=== PATIENT | female | born 1990 | race Caucasian/White ===

== ENCOUNTER 2024-09-28 21:02 | Inpatient (IN) ==
[2024-09-28] MEDS ORDERED: ACETAMINOPHEN 500 MG TAB PO PRN (21:30)
[2024-09-28] MEDS ORDERED: CALCIUM CARBONATE 500 MG CHEWABLE TAB PO PRN (21:30)
[2024-09-28] MEDS ORDERED: LIDOCAINE 1% LOCAL 20 ML VIAL INFIL PRN (21:30)
--- NOTE | 2024-09-28 21:37 | History & Physical Report ---
Date of Service September 28, 2024 Assessment & Plan (1) Gestational diabetes: Plan: Mara is a 33-year-old G1, P0 currently at 39 weeks 2 days gestational age presents early labor. 1. Fetus: Category 1 tracing 2. Labor: Will augment as needed appears to be in early labor 3. GBS positive -will start penicillin per protocol 4. Vitals within normal limits. (2) Supervision of normal first : (3) Group B streptococcal infection during : History of Present Illness Primary Care Provider: MARTIR Parrish Mara is a 33-year-old G1, P0 currently at 39 weeks 2 days gestational age presents in early labor. Reporting regular painful contractions. Denying leakage of fluid or vaginal bleeding reporting good movement. plans: Bariatric surgery 2017 - Gastric Sleeve *Growth US Q 4wks- per MFM--done 08/07/24 Carrier of SMA *FOB Negative Abnormal contour to placenta still present @ 24wks *MFM consult (07/07/24 @ [facility] [place]) Placental polyp Follow up w/ MFM w/in 4-6 weeks--nl us 08/07/24 Gestational Diabetes Growth u/s's q 4 weeks Nausea Benefit w/ Unisom, not Zofran Reglan contraindicated d/t Fluoxetine Discussed supportive measures GBS Positive *treat in labor Allergies Allergy/AdvReac Type Severity Reaction Status Date / Time No Known Allergies Allergy Verified 09/28/24 21:15 Home Medications Medication Instructions Recorded Confirmed Type fluoxetine [Prozac] 80 mg PO DAILY 07/17/23 09/28/24 History vits,calcium 21-iron fum tab PO 02/06/24 09/25/24 History 14 mg iron-folic acid 400 mcg tablet ( Complete) Breast Pump #1 ea 07/31/24 09/25/24 Rx acetone (urine) test (Ketone Urine #50 ea 08/05/24 09/25/24 Rx Test strips) blood sugar diagnostic (AppSociallyTouch #150 ea 08/05/24 09/25/24 Rx Verio test strips) blood-glucose meter (OneTouch #1 ea 08/05/24 09/25/24 Rx Verio Reflect Meter) lancets 33 gauge (OneTouch Delica #150 ea 08/05/24 09/25/24 Rx Plus Lancet) Patient History Medical History Varicella vaccination Asthma Anxiety and depression Surgical History H/O bariatric surgery Gastric sleeve Family History Mother Cervical cancer Denies family history of Ovarian cancer Prostate cancer Breast cancer Colorectal cancer Uterine cancer Social History (Updated 02/20/24 @ 08:59 by Kya Phelps) Smoking Status: Never smoker Do You Dip or Chew Tobacco: No; Hx Alcohol Use: Yes marital status: marital status details: Hussein Steven (33) [phone] Current Living Situation: Spouse Current Living Situation Comment: lives with spouse, fish, dog, cat-spouse changing litter current occupational status: employed 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 Physical Exam Genitourinary: OB Exam Monitor Tracing: + external FHT monitor used, + external uterine monitor used, + category I and + normal FHT variability 3 cm per nurse exam Results & Data Vital Signs (Past 12 Hours) Vital Signs Pulse BP 09/28/24 21:14 82 122/80 Coding Level of Care Code None Diagnoses Diet controlled gestational diabetes mellitus (GDM) in third trimester O24.410 Gestational diabetes mellitus control: diet-controlled Trimester: third trimester Encounter for supervision of normal first in third trimester Z34.03 Trimester: third trimester Group B streptococcal infection during O98.819; B95.1 (1) Gestational diabetes Gestational diabetes mellitus control: diet-controlled Trimester: third trimester Qualified Code(s): O24.410 - Gestational diabetes mellitus in , diet controlled (2) Supervision of normal first Trimester: third trimester Qualified Code(s): Z34.03 - Encounter for supervision of normal first , third trimester
[2024-09-28] MEDS: LACTATED RINGER'S 1,000 ML IV PRN (22:02)
[2024-09-28] MEDS: PENICILLIN GK 6 MU in SODIUM CHLORIDE 0.9% 250 ML IV STA (22:02)
[2024-09-28 22:10] LABS: Hemoglobin 11.5 g/dl (12.0-16.0); Mean Corpuscular Hemoglobin 27.6 pg (25.0-34.0); Mean Corpuscular Hgb Conc 33.8 g/dL (32.0-36.0); Mean Corpuscular Volume 81.7 fL (80.0-100.0); Mean Platelet Volume 10.1 fL (9.4-12.4); Platelet Count 240 K/uL (130-400); RDW Coefficient of Variation 15.3 % (11.5-14.5); RDW Standard Deviation 44.3 fL (36.4-46.3); Red Blood Count 4.16 M/uL (4.20-5.40); White Blood Count 14.72 K/ul (4.8-10.8)
[2024-09-28] MEDS ORDERED: NALBUPHINE HCL INJ 10 MG/ML AMP IV PRN (22:15)
[2024-09-28] MEDS ORDERED: NALOXONE HCL 0.4 MG/1 ML VIAL/CARP IV PRN (22:15)
[2024-09-28] MEDS ORDERED: NALOXONE HCL 1 MG in SODIUM CHLORIDE 0.9% 1,000 ML IV PRN (22:15)
[2024-09-28] MEDS ORDERED: SODIUM CHLORIDE 0.9% PF INJ 10 ML VIAL EPI PRN (22:15)
[2024-09-28] MEDS ORDERED: BUPIVACAINE 0.25% PF 30 ML VIAL EPI PRN (22:15)
[2024-09-28] MEDS ORDERED: ePHEDrine sulfate 50 MG/ML AMP IV PRN (22:15)
[2024-09-28] MEDS ORDERED: LIDOCAINE 2% MPF LOCAL 5 ML VIAL EPI PRN (22:15)
[2024-09-28] MEDS ORDERED: fentaNYL citrate PF 100 MCG/2 ML VIAL EPI PRN (22:15)
[2024-09-28] MEDS ORDERED: ROPIVACAINE 0.5% PF 5 MG/ML 20 ML VIAL EPI PRN (22:15)
[2024-09-28] MEDS ORDERED: diphenhydrAMINE 50 MG/ML VIAL IV PRN (22:15)
--- NOTE | 2024-09-28 22:22 | Anesthesiology Consultation ---
Date of Service September 28, 2024 Assessment & Plan (1) Encounter for pre-operative examination: Chart Review Chart Review: Patient NOT seen in Pre Admission Testing and Acceptable Risk for Labor Epidural Consults Requested none History Height/Weight Height: 5 ft 8 in Weight: 124.284 kg Allergies Allergy/AdvReac Type Severity Reaction Status Date / Time No Known Allergies Allergy Verified 09/28/24 21:15 Medications Home Medications Medication Instructions Recorded Confirmed Last Taken fluoxetine [Prozac] 80 mg PO DAILY 07/17/23 09/28/24 09/27/24 09:00 vits,calcium 21-iron fum tab PO 02/06/24 09/25/24 09/27/24 09:00 14 mg iron-folic acid 400 mcg tablet ( Complete) Breast Pump #1 ea 07/31/24 09/25/24 Unknown acetone (urine) test (Ketone Urine #50 ea 08/05/24 09/25/24 Unknown Test strips) blood sugar diagnostic (OneTouch #150 ea 08/05/24 09/25/24 Unknown Verio test strips) blood-glucose meter (OneTouch #1 ea 08/05/24 09/25/24 Unknown Verio Reflect Meter) lancets 33 gauge (OneTouch Delica #150 ea 08/05/24 09/25/24 Unknown Plus Lancet) Active Medications Generic Name Dose Route Start Last Admin Trade Name Freq PRN Reason Stop Dose Admin Lactated Ringer's 1,000 mls @ 125 mls/hr 09/28/24 21:30 09/28/24 22:02 Lr IV 09/29/24 21:29 999 mls/hr .Q8H PRN Administration L&D Protocol Protocol Past Medical History Medical History (Updated 09/28/24 @ 22:21 by Barrington Mccollum MD) Encounter for pre-operative examination Varicella vaccination Asthma allergy and exercise induced Anxiety and depression Exercise / Class Metabolic Activity II 4-5 Yardwork/Stairs/Walk up hill Past Family History Family History Mother Cervical cancer Denies family history of Ovarian cancer Prostate cancer Breast cancer Colorectal cancer Uterine cancer Past Surgical History Surgical History H/O bariatric surgery Gastric sleeve Social History Smoking Status: Never smoker Do You Dip or Chew Tobacco: No Hx Alcohol Use: Yes Hx Substance Use: No substance use type: does not use Physical Exam Vital Signs Last Vital Signs Temp 36.4 C L 09/28/24 21:31 Pulse 89 09/28/24 22:41 Resp 18 09/28/24 21:31 BP 139/76 09/28/24 22:39 Pulse Ox 100 09/28/24 22:41 Testing Laboratory Results 09/28/24 21:42 09/28/24 21:26 POC Glucose 94
[2024-09-28] MEDS: LIDOCAINE 2%/EPINEPHRINE 1:200,000 20 ML PF ONE (22:45)
[2024-09-28] MEDS: BUPIVACAINE 0.25% PF 30 ML VIAL ONE (22:45)
[2024-09-28] MEDS: fentaNYL citrate PF 100 MCG/2 ML VIAL ONE (22:46)
[2024-09-28] MEDS: fentANYL 2 MCG/ML BUPIVacaine 0.125%-NSS 100ML BAG ONE (22:49)
[2024-09-28] MEDS: ePHEDrine sulfate 50 MG/ML AMP ONE (23:22)
[2024-09-28] MEDS: SODIUM CHLORIDE 0.9% PF INJ 10 ML VIAL ONE (23:23)
[2024-09-29] MEDS: PENICILLIN GK 3 MU in DEXTROSE 5% 100 ML IV PRN (01:57)
[2024-09-29] MEDS: ONDANSETRON INJ 2 MG/ML 2 ML VIAL IV PRN (04:58)
[2024-09-29] MEDS: fentANYL 2 MCG/ML BUPIVacaine 0.125%-NSS 100ML BAG EPI PRN (05:23)
[2024-09-29] MEDS: SODIUM CHLORIDE 0.9% PF INJ 10 ML VIAL EPI STA (10:08)
[2024-09-29] MEDS: BUPIVACAINE 0.25% PF 30 ML VIAL EPI STA (10:08)
[2024-09-29] MEDS: LIDOCAINE 2%/EPINEPHRINE 1:200,000 20 ML PF EPI STA (10:08)
[2024-09-29] MEDS: fentaNYL citrate PF 100 MCG/2 ML VIAL EPI STA (10:08)
[2024-09-29] MEDS: OXYTOCIN 30 UNITS/NSS 30 UNITS/500 ML BAG IV PRN (10:18)
[2024-09-29] MEDS ORDERED: cefOXitin 2,000 MG in DEXTROSE 5 % MINI-B 50 ML IV STA (10:20)
--- NOTE | 2024-09-29 10:37 | Delivery Summary ---
Vaginal Delivery Summary Date of Service September 29, 2024 Vaginal Delivery Summary and 2nd Degree LAC PREOPERATIVE DIAGNOSIS: 1. Single intrauterine at 39 3/7 wga 2. Labor 3. A1GDM 4. Placental polyp 5. GBS+ POSTOPERATIVE DIAGNOSIS: 1. Single intrauterine at 39 3/7 wga 2. Labor 3. A1GDM 4. Placental polyp 5. GBS+ 6. Manual extraction of placenta 7. Delivered PROCEDURE: 1. Normal spontaneous vaginal delivery. SURGEON: Gregoria Majano MD ANESTHESIA: Epidural. QUANTITATIVE BLOOD LOSS: 568 mL FLUIDS: Continuous LR. URINE OUTPUT: None. COMPLICATIONS: None. CONDITION: Stable. INDICATIONS: 33 yo G1 at 39 3/7 wga presented in labor. She received penicillin for GBS+ status. She underwent srom for meconium fluid and received an epidural for pain control. She progressed to complete and desired to push. FINDINGS: A viable female infant, weight pending with Apgars of 8 and 8 at 1 and 5 minutes respectively. SPECIMEN: Cord blood, placenta OPERATIVE REPORT: The patient progressed to 10 cm, 100% effaced and +2 station, pushed over intact perineum with anesthesia to deliver a viable female , weight and Apgars as above. Head of delivered in HUA position. No nuchal cord was present. Body and shoulders were delivered without difficulty. was delivered to maternal abdomen and nursing staff. Delayed cord clamping was performed for 60 seconds. Cord was clamped and cut. Cord blood was obtained. Placenta did not deliver spontaneously so manual extraction was performed. Additional sweep did not reveal residual placenta. IV oxytocin and fundal massage were given for excellent hemostasis. Vagina, cervix, perineum, and placenta were inspected. A second degree laceration was repaired using 3-0 vicryl, there was excellent hemostasis. Sponge and needle counts correct x2. No sponges were left behind. Mother and stable in immediate period. One dose of ancef was given due to manual extraction [facility] Vaginal Delivery Charge Vaginal Delivery Codes: 99519 global code for the antepartum, delivery, and post- Delivery Type Details: and 2nd Degree LAC
[2024-09-29] MEDS ORDERED: HYDROCORTISONE ACETATE 25 MG SUPP PR PRN (10:43)
[2024-09-29] MEDS ORDERED: OXYTOCIN 30 UNITS/NSS 30 UNITS/500 ML BAG IV PRN (10:43)
[2024-09-29] MEDS ORDERED: bisacodyL 10 MG SUPP PR PRN (10:43)
[2024-09-29] MEDS ORDERED: ACETAMINOPHEN 325 MG TAB PO PRN (10:43)
[2024-09-29] MEDS: ceFAZolin 3,000 MG in DEXTROSE 5% 50 ML IV STA (10:50)
[2024-09-29] MEDS: DIPHTHER/TETAN/PERTUS Vaccine (Tdap, Adol/Adult) 0.5mL IM ONE (11:00)
--- NOTE | 2024-09-29 11:47 | Anesthesia Procedure Note ---
Date of Service September 29, 2024 Anesthesia Post Epidural Note Vital Signs Vital Signs: Temp Pulse Resp BP Pulse Ox 99.0 F 65 20 144/77 H 95 09/29/24 08:30 09/29/24 11:39 09/29/24 11:24 09/29/24 11:39 09/29/24 10:21 Pain Intensity Abdomen: Pain Intensity: 1 Notes Mental Status: alert / awake / arousable and participated in evaluation Nausea / Vomiting: adequately controlled Pain: adequately controlled Airway Patency, RR, SpO2: stable & adequate BP & HR: stable & adequate Hydration State: stable & adequate Neuraxial Anesthesia: was administered and sensory block is resolving Anesthetic Complications: no major complications apparent and Pt Satisfied with anesthetic care Epidural: Removed without complications and With tip intact
[2024-09-29] MEDS: IBUPROFEN 600 MG TAB PO PRN (12:23)
[2024-09-29] MEDS: BENZOCAINE 20% SPRY 85 APPLN/85 GM CAN EXT PRN (12:24)
[2024-09-29] MEDS: SODIUM CHLORIDE 0.9% 500 ML IV ONE (16:28)
[2024-09-29] MEDS: DOCUSATE SODIUM 100 MG CAP PO SCH (21:20)
--- NOTE | 2024-09-30 06:07 | Obstetrical Progress Note ---
Date of Service <Jonny Tineo MD - Last Filed: 09/30/24 07:04> September 30, 2024 Assessment & Plan <Jonny Tineo MD - Last Filed: 09/30/24 07:04> (1) care and examination: PPD#1 s/p at 39 wga: Stable. Rh+, gbs+, ri, vitals wnl Continue routine care, ambulation, diet as tolerated, work on Plan for DC tomorrow <Kathy Saucedo MD - Last Filed: 09/30/24 07:06> (1) care and examination: Subjective <Jonny Tineo MD - Last Filed: 09/30/24 07:04> Patient is a 33yo who is PPD#1 following at 39 weeks. Abd pain/cramping minimal, well managed on analgesics, mostly burning around stitches Voiding w/o issue Tolerating meals Ambulating normally +passing gas, no BM yet Having appropriate lochia Planning to breastfeed. Constitutional: no fever, no chills or no sweats Respiratory: no dyspnea Cardiovascular: no chest pain, no palpitations or no calf pain Breast: no breast pain Gastrointestinal: no nausea or no vomiting Genitourinary (female): no dysuria Neurologic: no headache(s) no changes in vision, no headaches Physical Exam <Jonny Tineo MD - Last Filed: 09/30/24 07:04> General: Alert, oriented. No acute distress. Cardiac: Regular rate and rhythm, no murmurs, rubs, or gallops. Respiratory: Clear to auscultation bilaterally. No increased work of breathing. Symmetrical chest rise. No respiratory distress. Abdomen: Soft, nontender, nondistended. Bowel sounds present. Uterus: Uterine fundus firm, nontender, palpable 1 cm below the umbilicus. Lower extremities: No lower extremity edema or swelling. No deep calf pain. Results & Data <Jonny Tineo MD - Last Filed: 09/30/24 07:04> Vital Signs (Past 12 Hours) Vital Signs Temp Pulse Resp BP Pulse Ox O2 Del Method 09/30/24 03:50 36.6 C 76 18 129/83 98 Room Air 09/29/24 23:10 36.9 C 88 18 109/68 98 Room Air 09/29/24 19:50 36.6 C 88 18 121/79 98 Room Air Supervising Physician <Kathy Saucedo MD - Last Filed: 09/30/24 07:06> Co-Signing Physician Notes Resident Physician Supervision Note: I interviewed and examined the patient. Discussed with Dr. Tineo and agree with findings and plan as documented in the note. Any exceptions or clarifications are listed here: [ ] Documented By: Kathy Saucedo MD, FACOG Resident Activity Tracking <Jonny Tineo MD - Last Filed: 09/30/24 07:04> Resident Involvement: Resident Care Provided Care Provided: Adult Hospital Medicine
[2024-09-30] MEDS: FERROUS SULFATE 325 MG TAB PO SCH (07:56)
[2024-09-30] MEDS: PRENATAL VITAMIN 1 TAB PO SCH (07:56)
[2024-09-30] MEDS: bisacodyL 5 MG TABEC PO SCH (20:42)
[2024-10-01 00:11] VITALS: O2SAT 99
--- NOTE | 2024-10-01 07:11 | Obstetrical Progress Note ---
Date of Service <Jonny Tineo MD - Last Filed: 10/01/24 08:22> October 01, 2024 Assessment & Plan <Jonny Tineo MD - Last Filed: 10/01/24 08:22> (1) care and examination: PPD#2 s/p at 39 wga: Stable. Rh+, gbs+, ri, vitals wnl Continue routine care, ambulation, diet as tolerated, work on Plan for DC today <Hayley Mccain DO - Last Filed: 10/01/24 08:46> (1) care and examination: Subjective <Jonny Tineo MD - Last Filed: 10/01/24 08:22> Patient is a 33yo who is PPD#2 following at 39 weeks. Abd pain/cramping minimal, well managed on analgesics Was unsure if it's normal that she's not tired despite barely sleeping since admission Voiding w/o issue Tolerating meals Ambulating normally +passing gas, no BM yet Having appropriate lochia Planning to breastfeed. Constitutional: no fever, no chills or no sweats Respiratory: no dyspnea Cardiovascular: no chest pain, no palpitations or no calf pain Breast: no breast pain Gastrointestinal: no nausea or no vomiting Genitourinary (female): no dysuria Neurologic: no headache(s) Physical Exam <Jonny Tineo MD - Last Filed: 10/01/24 08:22> General: Alert, oriented. No acute distress. Cardiac: Regular rate and rhythm, no murmurs, rubs, or gallops. Respiratory: Clear to auscultation bilaterally. No increased work of breathing. Symmetrical chest rise. No respiratory distress. Abdomen: Soft, nontender, nondistended. Bowel sounds present. Uterus: Uterine fundus firm, nontender, palpable 2 cm below the umbilicus. Lower extremities: 1+ LE pitting edema. No deep calf pain. Results & Data <Jonny Tineo MD - Last Filed: 10/01/24 08:22> Vital Signs (Past 12 Hours) Vital Signs Temp Pulse Resp BP Pulse Ox O2 Del Method 09/30/24 23:45 36.7 C 69 16 115/76 99 Room Air 09/30/24 20:15 36.5 C 89 16 129/84 100 Room Air Supervising Physician <Hayley Mccain DO - Last Filed: 10/01/24 08:46> Co-Signing Physician Notes Resident Physician Supervision Note: I was present with Dr. Tineo during the history and exam. I discussed the case with the resident and agree with the findings and plan as documented in the note. Any exceptions or clarifications are listed here: PPD#2 doing well. DC instructions reviewed. PP followup 6 w Documented By: Hayley Mccain DO Resident Activity Tracking <Jonny Tineo MD - Last Filed: 10/01/24 08:22> Resident Involvement: Resident Care Provided Care Provided: Adult Hospital Medicine
[2024-10-01 08:39] VITALS: BP 115/78; PULSE 82; RESP 18; TEMP 98.2
== END 2024-10-01 12:45 | disposition home or self-care (01) | DRG 806 ==
LOC: OPB 21:02 → 4S1 21:03 → 4E2 09-29 13:05